=== PATIENT | female | born 1930 | race Caucasian/White ===

== ENCOUNTER 2016-04-28 10:26 | Outpatient (CLI) | payer MEDICARE | END 2016-04-28 10:27 | disposition home or self-care (01) | DX: N18.3 Chronic kidney disease, stage 3 (moderate) (principal) ==

== ENCOUNTER 2016-08-07 14:39 | Outpatient (CLI) | payer MEDICARE | END 2016-08-07 14:40 | disposition critical access hospital (66) | DX: S09.90XA Unspecified injury of head, initial encounter (principal); R47.9 Unspecified speech disturbances; R29.810 Facial weakness; W18.30XA Fall on same level, unspecified, initial encounter; Y92.59 Other trade areas as the place of occurrence of the external cause | CPT/HCPCS: A0425; A0427 ==

== ENCOUNTER 2016-08-07 14:57 | Inpatient (IN) | payer MEDICARE ==
[2016-08-07] MEDS ORDERED: SODIUM CHLORIDE 0.9% 1,000 ML IV ONE (15:02)
[2016-08-07] MEDS ORDERED: MORPHINE 2 MG/ML SYRINGE IVP STA (15:38)
[2016-08-07] MEDS ORDERED: MORPHINE 2 MG/ML SYRINGE ONE (15:47)
[2016-08-07] MEDS ORDERED: ONDANSETRON 4 MG/2 ML VIAL IVP PRN (15:55)
[2016-08-07] MEDS ORDERED: ATROPINE 1% OPHTH DROPS 2 ML SL PRN (15:55)
[2016-08-07] MEDS ORDERED: LORazepam 2 MG/ML SYRINGE IVP PRN (15:55)
[2016-08-07] MEDS: MORPHINE SOL 10 MG/0.5 ML SYRINGE SL PRN (20:30)
[2016-08-08] MEDS: MORPHINE SOL 10 MG/0.5 ML SYRINGE SL PRN ×2 (09:36→14:05)
[2016-08-08] MEDS ORDERED: SODIUM CHLORIDE 0.9% 500 ML IV PRN (22:04)
[2016-08-08] MEDS: SODIUM CHLORIDE FLUSH 0.9% 10 ML SYRINGE IVP SCH (22:09)
[2016-08-09] MEDS: MORPHINE SOL 10 MG/0.5 ML SYRINGE SL PRN (15:53)
[2016-08-09] MEDS: NS W/20 MEQ KCL 1,000 ML IV SCH (15:56)
[2016-08-09] MEDS: SODIUM CHLORIDE FLUSH 0.9% 10 ML SYRINGE IVP SCH ×3 (15:56→21:45)
[2016-08-10] MEDS: NS W/20 MEQ KCL 1,000 ML IV SCH ×2 (04:11→17:49)
[2016-08-10] MEDS: SODIUM CHLORIDE FLUSH 0.9% 10 ML SYRINGE IVP SCH ×3 (06:19→22:12)
[2016-08-11] MEDS: NS W/20 MEQ KCL 1,000 ML IV SCH (03:05)
[2016-08-11] MEDS: SODIUM CHLORIDE FLUSH 0.9% 10 ML SYRINGE IVP SCH (07:37)
== END 2016-08-11 14:17 | DRG 64 ==
DX: I61.2 Nontraumatic intracerebral hemorrhage in hemisphere, unspecified (principal); G93.40 Encephalopathy, unspecified; S00.03XA Contusion of scalp, initial encounter; W19.XXXA Unspecified fall, initial encounter; Y93.01 Activity, walking, marching and hiking; Y92.410 Unspecified street and highway as the place of occurrence of the external cause; I10 Essential (primary) hypertension; E11.9 Type 2 diabetes mellitus without complications; E78.00 Pure hypercholesterolemia, unspecified; G81.01 Flaccid hemiplegia affecting right dominant side; R47.01 Aphasia; R47.1 Dysarthria and anarthria; R13.10 Dysphagia, unspecified; R29.810 Facial weakness; E11.22 Type 2 diabetes mellitus with diabetic chronic kidney disease; I12.9 Hypertensive chronic kidney disease with stage 1 through stage 4 chronic kidney disease, or unspecified chronic kidney disease; N18.3 Chronic kidney disease, stage 3 (moderate); E78.5 Hyperlipidemia, unspecified; F32.9 Major depressive disorder, single episode, unspecified; I73.9 Peripheral vascular disease, unspecified; Z66 Do not resuscitate; Z51.5 Encounter for palliative care; Z91.81 History of falling; Z79.4 Long term (current) use of insulin; Z79.82 Long term (current) use of aspirin; Z87.891 Personal history of nicotine dependence

== ENCOUNTER 2016-08-11 14:21 | Outpatient (CLI) | payer MEDICARE | END 2016-08-11 14:22 | disposition hospice, inpatient (51) | DX: I61.8 Other nontraumatic intracerebral hemorrhage (principal) | CPT/HCPCS: A0425; A0428 ==